=== PATIENT | male | born 1940 | race Caucasian/White ===

== ENCOUNTER 2024-04-04 08:44 | Day surgery (SDC) | payer MEDICARE, OTHER ==
[~2024-04-04] VITALS: Ht 172.7 cm; Wt 63.2 kg
[~2024-04-04 08:44] MED LIST: AMOXICILLIN 8751 TAB PO; ASPIRIN E.C. 8181 MG PO; CIALIS5 MG PO; FLAGYL500 MG PO; HALCION 0.0.125 MG/T; IBU600 MG PO; LEVAQUIN 750MG750 MG PO; LEVOXYL0.025 MG PO; LEVOXYL0.05 MG PO; LIPITOR 40MG TA40 MG PO; MUCINEX 60600 MG/TA1 PO; MULTIPLE VITAMI1 CAP PO; MYRBETR25MG PO; NATURAL E400 IU PO; NO HOME MEDICATIONS; NORCO 325 MG-51 TAB PO; OMNICEF 300MG300 MG PO; PEN-VEE K500 MG PO; PREDNISONE10 MG PO; PREDNISONE20 MG PO; PROAIR HFA0.09 MG/AC IH; TAMIFLU30 MG PO; TESSALON P100 MG/CAP PO; VITAMIN A10k PO; VITAMIN B COMPL1 SGL PO; VITAMIN C500 MG PO; VITAMIN D 400400 IU PO; VITAMIN D1000 IU PO; [UNRECOGNIZED DRUG - REMARK]
[2024-04-04] MEDS ORDERED: Famotidine 20 MG TAB PO SCH (08:45)
[2024-04-04] MEDS ORDERED: LR 1,000 ML IV ONE (08:45)
[2024-04-04] MEDS ORDERED: Succinylcholine PF 200 MG/10 ML SYRINGE IV ONE (09:37)
[2024-04-04] MEDS ORDERED: Lidocaine PF 2% (20 MG/ML) 5 ML VIAL ONE (09:37)
[2024-04-04] MEDS ORDERED: Rocuronium 50 MG/5 ML Multi-Dose VIAL ONE (09:41)
[2024-04-04] MEDS ORDERED: fentaNYL 50 MCG/ML 2 ML VIAL ONE (09:42)
[2024-04-04] MEDS ORDERED: NS 10 ML IV ONE (09:42)
[2024-04-04] MEDS ORDERED: SINEMET 25/101 UDTAB PO (09:54)
[2024-04-04] MEDS ORDERED: NEURONTIN100 MG/CAP PO (09:54)
[2024-04-04] MEDS ORDERED: SYNTHROID0.05 MG/TA PO (09:55)
[2024-04-04] MEDS ORDERED: B-121000 MCG PO (09:58)
[2024-04-04] MEDS ORDERED: OCUVITE1 TA1 PO (09:59)
[2024-04-04] MEDS ORDERED: MELATONIN5 M1 SL (10:01)
[2024-04-04 10:07] VITALS: BP 123/64; PULSE 62; TEMP 97.3
[2024-04-04] MEDS ORDERED: NORCO 325 MG-51 TAB PO (11:08)
[2024-04-04] MEDS ORDERED: HYDROmorphone 1 MG/1 ML SYRINGE [PACU/SDC ONLY] IV PRN (11:45)
[2024-04-04] MEDS ORDERED: hydrALAZINE 20 MG/ML 1 ML VIAL IV PRN (11:45)
[2024-04-04] MEDS ORDERED: Ondansetron 4 MG/2 ML VIAL IV PRN ×2 (11:45→12:30)
[2024-04-04] MEDS ORDERED: Meperidine 50 MG/ML 1 ML VIAL IV PRN (11:45)
[2024-04-04] MEDS ORDERED: fentaNYL 50 MCG/ML 1 ML SYRINGE/VIAL [PACU/SDC ONLY] IV PRN (11:45)
[2024-04-04] MEDS ORDERED: Ibuprofen 600 MG TAB PO PRN (12:30)
[2024-04-04 13:05] VITALS: BP 125/66; PULSE 66; TEMP 97.4
[2024-04-04 13:20] VITALS: BP 120/66; PULSE 64
[2024-04-04 13:35] VITALS: BP 115/61; PULSE 70
[2024-04-04 13:50] VITALS: BP 112/59; PULSE 71
--- NOTE | 2024-04-04 15:31 | NUR ---
1305- Pt returns from PACU at this time. VSS. Bedside handoff received from CHRISTINE Aguilar. IV fluids infusing as ordered. Water given. at bedside. 1345- Pt with complaints of pain, pudding given along with pain medications. SEE EMAR. 1405- Discharge instructions and education reviewed with patient and . Questions answered. Up getting dressed at this time. Wishes to rest longer after he is dressed. Urine void- 250ml clear yellow urine. 1440- IV site removed. 1500- Pt wheels down to wifes car via w/c at this time. Denies complaints at time of discharge. Denies questions.
== END 2024-04-04 15:00 | disposition home or self-care (01) ==
LOC: SDCO 08:44
DX: K40.90 Unilateral inguinal hernia, without obstruction or gangrene, not specified as recurrent (principal); G20.A1 Parkinson's disease without dyskinesia, without mention of fluctuations; J45.909 Unspecified asthma, uncomplicated; E03.9 Hypothyroidism, unspecified; G62.9 Polyneuropathy, unspecified; Z79.890 Hormone replacement therapy
CPT/HCPCS: C1781; J0690; J2704; J3010; J7120